=== PATIENT | female | born 1965 | race Hispanic/Latino ===

== ENCOUNTER 2017-09-29 10:40 | Emergency (ER) | payer SELFPAY ==
[2017-09-29] MEDS ORDERED: IBUPROFEN 200 MG TAB PO ONE ×2 (11:05→11:52)
--- NOTE | 2017-09-29 11:40 | EDPHYS ---
Physician Documentation [facility] Name: Monie Bundy Age: 52 yrs Sex: Female : 1965 Arrival Date: 09/29/2017 Time: 10:54 Bed 12 Private MD: ED Physician Lenny Bustillos HPI: 09/29 11:38 This 52 yrs old Female presents to ER via Ambulatory with complaints of Flu kb Symptoms. 11:38 The patient presents with sore throat. The patient describes throat pain as constant. kb Onset: The symptoms/episode began/occurred 2 day(s) ago. Severity of symptoms: At their worst the symptoms were mild, moderate, in the emergency department the symptoms are unchanged. Modifying factors: The symptoms are alleviated by nothing, the symptoms are aggravated by swallowing, Patient's oral intake status: good Denies contact with similarly ill indivduals. Associated signs and symptoms: Pertinent positives: fever, flu-like symptoms, myalgias, Sore throat. The patient has not experienced similar symptoms in the past. The patient has not recently seen a physician. Pt reports sore throat and body aches that is progressively getting worse. 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 - Social history:: Smoking status: Patient uses tobacco products, smokes one pack cigarettes per day. Patient uses alcohol, weekly. ROS: 11:36 Cardiovascular: Negative for chest pain, palpitations, and edema, Respiratory: Negative kb for shortness of breath, cough, wheezing, and pleuritic chest pain, Abdomen/GI: Negative for abdominal pain, nausea, vomiting, diarrhea, and constipation, MS/Extremity: Negative for injury and deformity, Skin: Negative for injury, rash, and discoloration, Neuro: Negative for headache, weakness, numbness, tingling, and seizure. 11:36 Constitutional: Positive for body aches, Negative for chills, fatigue, fever, malaise, poor PO intake, weight loss. 11:36 ENT: Positive for sore throat. Exam: 11:36 Constitutional: This is a well developed, well nourished patient who is awake, alert, kb and in no acute distress. Head/Face: Normocephalic, atraumatic. Neck: Trachea midline, no thyromegaly or masses palpated, and no cervical lymphadenopathy. Supple, full range of motion without nuchal rigidity, or vertebral point tenderness. No Meningismus. Chest/axilla: Normal chest wall appearance and motion. Nontender with no deformity. No lesions are appreciated. Cardiovascular: Regular rate and rhythm with a normal S1 and S2. No gallops, murmurs, or rubs. Normal PMI, no JVD. No pulse deficits. Respiratory: Lungs have equal breath sounds bilaterally, clear to auscultation and percussion. No rales, rhonchi or wheezes noted. No increased work of breathing, no retractions or nasal flaring. Abdomen/GI: Soft, non-tender, with normal bowel sounds. No distension or tympany. No guarding or rebound. No evidence of tenderness throughout. Skin: Warm, dry with normal turgor. Normal color with no rashes, no lesions, and no evidence of cellulitis. MS/ Extremity: Pulses equal, no cyanosis. Neurovascular intact. Full, normal range of motion. Neuro: Awake and alert, GCS 15, oriented to person, place, time, and situation. Cranial nerves II-XII grossly intact. Motor strength 5/5 in all extremities. Sensory grossly intact. Cerebellar exam normal. Normal gait. 11:36 ENT: Posterior pharynx: Airway: normal, no evidence of obstruction, Tonsils: bilaterally enlarged, with erythema, Uvula: normal, midline, swelling, that is mild, erythema, that is moderate, exudate, is not appreciated. Vital Signs: 10:59 BP 134 / 86; Pulse 90; Resp 17; Temp 100.3; Pulse Ox 98% on R/A; Weight 68.04 kg; ch Height 5 ft. (152.40 cm); Pain 8/10; 10:59 Body Mass Index 29.29 (68.04 kg, 152.40 cm) ch MDM: 11:03 Patient medically screened. kb 11:36 Data reviewed: vital signs, nurses notes. Data interpreted: Pulse oximetry: on room air kb is 98 %. Interpretation: normal. Counseling: I had a detailed discussion with the patient and/or guardian regarding: the historical points, exam findings, and any diagnostic results supporting the discharge/admit diagnosis, lab results, the need for outpatient follow up, a family practitioner, to return to the emergency department if symptoms worsen or persist or if there are any questions or concerns that arise at home. 09/29 10:58 Order name: Flu; Complete Time: 11:31 09/29 10:58 Order name: Strep; Complete Time: 11:31 09/29 11:32 Order name: Throat Culture EDNC Administered Medications: 11:54 Drug: Ibuprofen 600 mg Route: PO; aa5 11:54 Follow up: Response: Medication administered at discharge. aa5 Disposition: 22:20 Co-signature as Attending Physician, Lenny Bustillos MD I agree with the assessment and kdr plan of care. Disposition: 09/29/17 11:39 Discharged to Home. Impression: Acute pharyngitis. - Condition is Stable. - Discharge Instructions: Pharyngitis, Renr-bz-Fsch. - Prescriptions for Amoxicillin 875 mg Oral Tablet - take 1 tablet by ORAL route every 12 hours for 7 days; 14 tablet. - Medication Reconciliation Form, Thank You Letter, Antibiotic Education, Prescription Opioid Use form. - Follow up: Emergency Department; When: As needed; Reason: Worsening of condition. Follow up: Private Physician; When: 2 - 3 days; Reason: Recheck today's complaints, Continuance of care, Re-evaluation by your physician. Signatures: [facility] Shayy Rodriguez, VANDANA SHEPHERD-Kelley Yo RN RN Lenny Bustillos MD MD [facility] Sheila Schultz RN RN aa5 Corrections: (The following items were deleted from the chart) 11:56 11:39 09/29/2017 11:39 Discharged to Home. Impression: Acute pharyngitis. Condition is aa5 Stable. Forms are Medication Reconciliation Form, Thank You Letter, Antibiotic Education, Prescription Opioid Use. Follow up: Emergency Department; When: As needed; Reason: Worsening of condition. Follow up: Private Physician; When: 2 - 3 days; Reason: Recheck today's complaints, Continuance of care, Re-evaluation by your physician. kb
--- NOTE | 2017-09-29 11:40 | ER ---
Nurse's Notes [facility] Name: Monie Bundy Age: 52 yrs Sex: Female : 1965 Arrival Date: 09/29/2017 Time: 10:54 Bed 12 Private MD: Diagnosis: Acute pharyngitis Presentation: 09/29 10:58 Presenting complaint: Patient states: night before last my throat felt sore and dry. ch this morning i woke up and my throat feels swollen and i have body aches all over. Transition of care: patient was not received from another setting of care. Onset of symptoms was September 27, 2017. Initial Sepsis Screen: Does the patient meet any 2 criteria? No. Patient's initial sepsis screen is negative. Does the patient have a suspected source of infection? No. Patient's initial sepsis screen is negative. Care prior to arrival: None. 10:58 Method Of Arrival: Ambulatory 10:58 Acuity: JANNETTE 4 ch Triage Assessment: 10:59 General: Appears in no apparent distress. comfortable, Behavior is calm, cooperative, ch appropriate for age. Pain: Complains of pain in throat Pain currently is 8 out of 10 on a pain scale. EENT: Nares with drainage noted Throat is reddened has enlarged tonsils bilaterally Reports nasal congestion nasal discharge pain when swallowing. Respiratory: Airway is patent Respiratory effort is even, unlabored. Derm: Skin is pink, warm \T\ dry. 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 - Social history:: Smoking status: Patient uses tobacco products, smokes one pack cigarettes per day. Patient uses alcohol, weekly. Assessment: 11:55 Reassessment: Patient is alert, oriented x 3, equal unlabored respirations, skin aa5 warm/dry/pink. Vital Signs: 10:59 BP 134 / 86; Pulse 90; Resp 17; Temp 100.3; Pulse Ox 98% on R/A; Weight 68.04 kg; ch Height 5 ft. (152.40 cm); Pain 8/10; 10:59 Body Mass Index 29.29 (68.04 kg, 152.40 cm) ED Course: 10:54 Patient arrived in ED. sb2 10:59 Triage completed. 10:59 Arm band placed on left wrist. Patient placed in an exam room, on a stretcher. 11:00 Kelley Rodriguez, RN is Primary Nurse. 11:02 Shayy Rodriguez [facility]C [facility]. 11:02 Lenny Bustillos MD is Attending Physician. kb Administered Medications: 11:54 Drug: Ibuprofen 600 mg Route: PO; aa5 11:54 Follow up: Response: Medication administered at discharge. aa5 Outcome: 11:39 Discharge ordered by MD. kb 11:55 Discharged to home ambulatory. aa5 11:55 Condition: good 11:55 Discharge instructions given to patient, Instructed on discharge instructions, follow up and referral plans. medication usage, Demonstrated understanding of instructions, follow-up care, medications, Prescriptions given X 1. 11:56 Patient left the ED. aa5 Signatures: Shayy Rodriguez FNP-C FNP-Ckb Hammond, Christina, RN RN Sheila Schultz RN RN aa Amelia Gutierrez 2
[2017-09-29] MEDS ORDERED: IBUPROFEN 400 MG TAB ONE (11:52)
== END 2017-09-29 11:56 | disposition home or self-care (01) ==
LOC: ER 10:40
DX: J02.9 Acute pharyngitis, unspecified (principal); F17.210 Nicotine dependence, cigarettes, uncomplicated
CPT/HCPCS: 87070; 87081; 87804; 99283

== ENCOUNTER 2021-10-08 11:19 | Observation (INO) | payer BC, SELFPAY ==
--- OUTSIDE RECORDS SUMMARY | 2021-10-08 11:24 | XMS REPORT | Continuity of Care Document ---
:1965 Author Organization [facility] t Address [address] [place] [address] Care Team Providers Name Role Phone PCP, DOES NOT HAVE A Primary Care Physician Unavailable RENE Attending Clinician Unavailable Only, Db Test Attending Clinician Unavailable Rene GOMEZ Attending Clinician Anene INSULATION SPRAYER Attending Clinician Only, Test Attending Clinician Unavailable Caitlyn GOMEZ Attending Clinician Lab, Fam Pob I Attending Clinician Unavailable ANENE Attending Clinician Unavailable Doctor Unassigned, Name Attending Clinician Unavailable Benton GOMEZ, A Attending Clinician Payers Payer Name Policy Type Policy Number Effective Date Expiration Date S ource [facility] [id number] 2019 00:00:00 Problems This patient has no known problems. Allergies, Adverse Reactions, Alerts Allergy Allergy Status Severity Reaction(s) Onset Inactive Treating Comm ents Source Name Type Date Date Clinician NO KNOWN Drug Active [facility] ALLERGIE Class ity of S [facility] Social History Social Habit Start Date Stop Date Quantity Comments Source Exposure to Not sure [facility] SARS-CoV-2 (event) Medica l Branch Sex Assigned At [birth year] [facility] 00:00:00 00:00:00 [facility] Smoking Status Start Date Stop Date Source Unknown if ever smoked [facility] Medications Ordered Filled Start Stop Current Ordering Indication Dosage Frequency Signature Comments Components Source Medication Medication Date Date Medication? Clinician (SIG) Name Name No known 2020-05 No Univers medications 2-29 ity of 16:29: [place] [facility] No known No Univers medications ity of [facility] No known No Univers medications ity of [facility] No known No Univers medications ity of [facility] No known No Univers medications ity of [facility] No known No Univers medications ity of [facility] No known No Univers medications ity of [facility] No known No Univers medications ity of [facility] No known No Univers medications ity of [facility] No known No Univers medications ity of [facility] No known No Univers medications ity of [facility] No known No Univers medications ity of [facility] Procedures Procedure Date / Time Performed Performing Clinician [facility] ASSIGNMENT OF BENEFITS 2020-01-11 19:53:17 Doctor Unassigned, No [facility] Name Medical Branch Encounters Start End Encounter Admission Attending Care Care Encounter Source Date/Time Date/Time Type Type Clinicians Facility Department ID 2021-05-21 2021-05-21 Outpatient R RENE [facility] [id number] Univers 16:30:00 16:30:27 DAVID ity of [facility] 2021-05-21 2021-05-21 Laboratory Only, Ang Db Test [facility] [id number] [id number] Univers 16:30:00 16:30:27 Only Rene [facility] [id number] ity of [place] [id number] Frank as SEA?BLEA [phone] [facility] [address] [employer] MEDICAL OFFICE BUILDING 2021-05-21 2021-05-21 Outpatient R [facility] [id number] Univers 16:30:00 16:30:00 [id number] ity [facility] 2020-09-20 2020-09-20 Telephone Vickey [facility] [id number] Univers 00:00:00 00:00:00 Priscilla Quigley [id number] i [id number] [phone] [facility] [address] 2020-09-19 2020-09-19 Laboratory Only, Adc Test [facility] [id number]. [id number] Univers 13:54:25 14:09:25 Only Morgan Brady [id number] ity of [place] [id number] [place] [facility] [phone] [address] 2020-09-19 2020-09-19 Outpatient R [facility] [id number] Univers 14:00:00 14:00:00 ity of [facility] 2020-09-19 2020-09-19 Outpatient R [facility] [id number] Univers 13:30:00 13:30:00 [id number] ity [facility] 2020-09-12 2020-09-12 [facility] [id number] Univers 00:00:00 00:00:00 Priscilla [employer] [id number] it y of [place] [id number] Frank as Professio [phone] [address] Office [facility] One 2020-09-11 2020-09-11 Telephone Vickey [facility] [id number] Univers 00:00:00 00:00:00 Priscilla [employer] [id number] it y of [place] [id number] Frank as Professio [phone] Mt dicar nal [address] [place] [address] One 2020-09-09 2020-09-09 Laboratory Lab, Adc Fam Pob I [facility] 1.2. [id number] Univers 15:32:06 15:52:06 Only Priscilla Hurd [id number] ity of [place] [id number] Frank as Professio [phone] [address] One 2020-09-09 2020-09-09 Outpatient R [facility] [id number] Univers 15:00:00 15:00:00 [id number] ity [facility] 2020-09-09 2020-09-09 [facility] [id number] Univers 15:00:00 15:00:00 PRISCILLA ity [facility] 2020-09-09 2020-09-09 Letter Doctor ALICEA [id number] Univers 00:00:00 00:00:00 (Out) Unassigned, KATIA [id number] ity of [place] [facility] [id number] Frank as [phone] [facility] [address] Branch 2020-01-11 2020-01-11 Laboratory Only, Adc Test [facility] 1.2.840. [id number] Univers 14:56:13 15:11:13 Only Lázaro Bhardwaj [id number] ity of [place] [id number] [place] [facility] [phone] [facility] [address] Branch 2020-01-11 2020-01-11 Outpatient R [facility] [id number] Univers 14:45:00 14:45:00 ity of [facility] 2020-01-11 2020-01-11 Orders Doctor NIXNO [id number] Univers 00:00:00 00:00:00 Only Unassigned, KATIA [id number] ity of [place] [facility] [id number] Frank as [phone] [facility] 00[address] Branch Results This patient has no known results.
[2021-10-08 13:34] LABS: Hematocrit 44.4 % (36.0-45.0); Lymphocytes % 33.2 % (15.3-44.8); RBC Red Blood Cell Count 4.83 M/uL (3.86-4.86)
[2021-10-08 13:38] LABS: Protime INR 0.97
--- NOTE | 2021-10-08 13:43 | RAD REPORT ---
EXAM DESCRIPTION: RAD - Chest Single View - 10/08/2021 1:29 pm CLINICAL HISTORY: CHEST PAIN COMPARISON: No comparisons FINDINGS: Lines: None. Lungs: No evidence of edema or pneumonia. Pleural: No significant pleural effusions or pneumothorax. Cardiac: Cardiomegaly. Bones: No acute fractures. Other: IMPRESSION: No acute cardiopulmonary disease.
[2021-10-08 13:54] LABS: ALT/SGPT 35 U/L (12-78); AST/SGOT 20 U/L (15-37); Albumin 3.8 g/dL (3.4-5.0); Alkaline Phosphatase 83 U/L (45-117); BUN Blood Urea Nitrogen 10 mg/dL (7-18); Bicarbonate 29 mmol/L (21-32); Bilirubin Total 0.3 mg/dL (0.2-1.0); Glomerular Filtration Rate 102 ml/min (=/>90); Glucose Level 97 mg/dL (74-106); Magnesium 2.1 mg/dL (1.8-2.4); NT PRO-BNP 28 pg/mL (<125); Potassium 3.4 mmol/L (3.5-5.1); Protein, Total 8.1 g/dL (6.4-8.2); Sodium Level 140 mmol/L (136-145); Troponin High Sensitivity 6.4 pg/mL (<58.9)
[2021-10-08 13:55] LABS: Bilirubin Direct < 0.1 mg/dL (0-0.2)
[2021-10-08] MEDS ORDERED: ASPIRIN 81 MG CHEWABLE TABLET ONE (15:28)
--- NOTE | 2021-10-08 16:20 | ER ---
Nurse's Notes [facility] Name: Monie Bundy Age: 56 yrs Sex: Female : 1965 Arrival Date: 10/08/2021 Time: 11:21 Bed 26 Private MD: Diagnosis: Chest pain, unspecified Presentation: 10/08 11:53 Chief complaint: Patient states: she was at work when she started experiencing chest ap3 pain and chest tightness. patient states the pain has subsided since, but at the time she reports it as a 5/10. Coronavirus screen: At this time, the client does not indicate any symptoms associated with coronavirus-19. Ebola Screen: No symptoms or risks identified at this time. Initial Sepsis Screen: Does the patient meet any 2 criteria? No. Patient's initial sepsis screen is negative. Does the patient have a suspected source of infection? No. Patient's initial sepsis screen is negative. Risk Assessment: Do you want to hurt yourself or someone else? Patient reports no desire to harm self or others. Onset of symptoms was October 08, 2021 at 10:30. 11:53 Method Of Arrival: Ambulatory ap3 11:53 Acuity: JANNETTE 3 ap3 Triage Assessment: 11:55 General: Appears in no apparent distress. Behavior is calm, cooperative, appropriate ap3 for age. Pain: Complains of pain in chest Pain does not radiate. Neuro: Level of Consciousness is awake, alert, obeys commands, Oriented to person, place, time, situation, Appropriate for age Gait is steady, Speech is normal. Cardiovascular: Reports chest pain, Patient's skin is warm and dry. Respiratory: Airway is patent Respiratory effort is even, unlabored, Respiratory pattern is regular, symmetrical. Historical: - Allergies: 11:55 No Known Allergies; ap3 - Home Meds: 11:55 None [Active]; ap3 - PMHx: 11:55 None; ap3 - Immunization history:: Client reports having NOT received the Covid vaccine. Flu vaccine is up to date. - Social history:: Smoking status: Patient reports the use of cigarette tobacco products, denies chronic smoking, but will smoke occasionally. Screenin:56 Abuse screen: Denies threats or abuse. Nutritional screening: No deficits noted. ap3 Tuberculosis screening: No symptoms or risk factors identified. Fall Risk None identified. Assessment: 15:39 General: Appears in no apparent distress. comfortable, Behavior is calm, cooperative, ld1 appropriate for age. Pain: Denies pain. Neuro: Level of Consciousness is awake, alert, obeys commands, Oriented to person, place, time, situation. Cardiovascular: Capillary refill < 3 seconds Patient's skin is warm and dry. Rhythm is regular. Respiratory: Airway is patent Respiratory effort is even, unlabored. GI: Abdomen is round non-distended. : No signs and/or symptoms were reported regarding the genitourinary system. EENT: No signs and/or symptoms were reported regarding the EENT system. Derm: No signs and/or symptoms reported regarding the dermatologic system. Musculoskeletal: No signs and/or symptoms reported regarding the musculoskeletal system. 16:26 Reassessment: Patient appears in no apparent distress at this time. No changes from ld1 previously documented assessment. Patient is alert, oriented x 3, equal unlabored respirations, skin warm/dry/pink. 10/09 01:12 Pain: Pain began. vc1 Vital Signs: 10/08 11:53 BP 128 / 89; Pulse 71; Resp 17; Temp 98.6; Pulse Ox 100% ; Weight 81.65 kg; Height 5 ap3 ft. (152.40 cm); 15:39 BP 136 / 87; Pulse 68; Resp 18; Pulse Ox 99% on R/A; ld1 16:26 BP 129 / 88; Pulse 71; Resp 18; Pulse Ox 99% on R/A; ld1 18:19 BP 123 / 72; Pulse 65; Resp 18; Pulse Ox 97% on R/A; ld1 19:24 BP 140 / 85; Pulse 62; Resp 18; Pulse Ox 99% on R/A; ld1 11:53 Body Mass Index 35.15 (81.65 kg, 152.40 cm) ap3 ED Course: 11:21 Patient arrived in ED. am2 11:47 Ke Leon PA is PHCP. cp 11:47 Danny Hensley DO is Attending Physician. cp 11:55 Triage completed. ap3 11:56 Arm band placed on left wrist. ap3 11:56 EKG done, by ED staff, reviewed by Ke TITUS. ap3 11:56 Patient maintains SpO2 saturation greater than 95% on room air. ap3 13:28 Inserted saline lock: 20 gauge in left antecubital area, using aseptic technique. Blood jw7 collected. 13:29 Initial lab(s) drawn, by me, sent to lab. jw7 13:31 XRAY Chest (1 view) In Process Unspecified. EDMS 15:35 Yadi Cuello, RN is Primary Nurse. ld1 15:40 Patient has correct armband on for positive identification. Placed in gown. Bed in low ld1 position. Call light in reach. Side rails up X2. manager monitoring on. Pulse ox on. NIBP on. Door closed. Noise minimized. Warm blanket given. 15:40 No provider procedures requiring assistance completed. ld1 16:20 Andrea Montague is Hospitalizing Provider. cp 10/09 00:00 Patient admitted, IV remains in place. vc1 Administered Medications: 10/08 15:40 Drug: Aspirin Chewable Tablet 324 mg Route: PO; ld1 16:26 Drug: Potassium Effervescent Tablet 50 mEq Route: PO; ld1 Medication: 11:56 VIS not applicable for this client. ap3 Outcome: 16:20 Decision to Hospitalize by Provider. cp 10/09 00:00 Admitted to ER Hold. Please see [facility] for further documentation. vc1 Condition: good Instructed on the need for admit. 18:32 Discharged to home ambulatory. edmond 18:32 Patient left the ED. edmond Signatures: Dispatcher [employer] EDMS Ke Leon PA PA cp Charis Shoemaker am2 Charis Lim RN RN ap3 Yadi Cuello, RN RN ld1 Avelina-StageChristie guardado RN RN edmond Maria Eugenia Williamson RN RN vc1 Cely Wilkerson jw7
--- NOTE | 2021-10-08 16:21 | EDPHYS ---
Physician Documentation [facility] Name: Monie Bundy Age: 56 yrs Sex: Female : 1965 Arrival Date: 10/08/2021 Time: 11:21 Bed 26 Private MD: ED Physician Danny Hensley HPI: 10/08 12:35 This 56 yrs old Female presents to ER via Ambulatory with complaints of Chest cp Tightness, Chest Pain. 12:35 The patient or guardian reports chest pain that is located primarily in the anterior cp chest wall, left. 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 12:35 The pain does not radiate. Associated signs and symptoms: The patient has no apparent cp associated signs or symptoms. The chest pain is described as a pressure. Duration: The patient or guardian reports a single episode, that is now resolved. Historical: - Allergies: 11:55 No Known Allergies; ap3 - Home Meds: 11:55 None [Active]; ap3 - PMHx: 11:55 None; ap3 - Immunization history:: Client reports having NOT received the Covid vaccine. Flu vaccine is up to date. - Social history:: Smoking status: Patient reports the use of cigarette tobacco products, denies chronic smoking, but will smoke occasionally. ROS: 12:40 Constitutional: Negative for body aches, chills, fever, poor PO intake. cp 12:40 Cardiovascular: Positive for chest pain, Negative for edema, palpitations. cp 12:40 Respiratory: Negative for cough, shortness of breath, wheezing. 12:40 Abdomen/GI: Negative for abdominal pain, vomiting, diarrhea, constipation. cp 12:40 Back: Negative for pain at rest, pain with movement. cp 12:40 Eyes: Negative for injury, pain, redness, and discharge. cp 12:40 ENT: Negative for drainage from ear(s), ear pain, sore throat, difficulty swallowing, cp difficulty handling secretions. 12:40 Neuro: Negative for altered mental status, dizziness, headache, syncope, weakness. 12:40 All other systems are negative. Exam: 11:55 ECG was reviewed by the Attending Physician. cp 12:45 Constitutional: The patient appears in no acute distress, alert, awake, cp non-diaphoretic, non-toxic, well developed, well nourished. 12:45 Head/Face: Normocephalic, atraumatic. cp 12:45 Eyes: Periorbital structures: appear normal, Conjunctiva: normal, no exudate, no injection, Sclera: no appreciated abnormality, Lids and lashes: appear normal, bilaterally. 12:45 ENT: External ear(s): are unremarkable, Nose: is normal, Mouth: Lips: moist, Oral mucosa: moist, Posterior pharynx: Airway: no evidence of obstruction, patent. 12:45 Neck: ROM/movement: is normal, is supple, without pain, no range of motions limitations. 12:45 Chest/axilla: Inspection: normal. 12:45 Cardiovascular: Rate: normal, Rhythm: regular, Heart sounds: murmur, not appreciated, Edema: is not appreciated, JVD: is not appreciated. 12:45 Respiratory: the patient does not display signs of respiratory distress, Respirations: normal, no use of accessory muscles, no retractions, labored breathing, is not present, Breath sounds: are clear throughout, no decreased breath sounds, no stridor, no wheezing. 12:45 Abdomen/GI: Inspection: abdomen appears normal, Palpation: abdomen is soft and non-tender, in all quadrants. 12:45 Back: pain, is absent, ROM is normal. 12:45 Neuro: Orientation: to person, place \\T\\ time. Mentation: is normal, Motor: moves all fours, strength is normal, Sensation: is normal. 15:55 ECG was reviewed by the Attending Physician. cp Vital Signs: 11:53 BP 128 / 89; Pulse 71; Resp 17; Temp 98.6; Pulse Ox 100% ; Weight 81.65 kg; Height 5 ap3 ft. (152.40 cm); 15:39 BP 136 / 87; Pulse 68; Resp 18; Pulse Ox 99% on R/A; ld1 16:26 BP 129 / 88; Pulse 71; Resp 18; Pulse Ox 99% on R/A; ld1 18:19 BP 123 / 72; Pulse 65; Resp 18; Pulse Ox 97% on R/A; ld1 19:24 BP 140 / 85; Pulse 62; Resp 18; Pulse Ox 99% on R/A; ld1 11:53 Body Mass Index 35.15 (81.65 kg, 152.40 cm) ap3 MDM: 15:22 Patient medically screened. cp 16:09 The patient was given aspirin in the Emergency Department. Data reviewed: vital signs, cp nurses notes, lab test result(s), EKG, radiologic studies, plain films, I have discussed the patient's presentation/case with the attending Emergency Department Physician;. Test interpretation: by ED physician or midlevel provider: ECG, plain radiologic studies. Physician consultation: Andrea Montague was called at 16:10, was contacted at 16:10, regarding consult, patient's condition, and will see patient in ED, shortly. 10/08 12:30 Order name: Basic Metabolic Panel; Complete Time: 14:48 cp 10/08 14:48 Interpretation: Normal except: K 3.4. cp 10/08 12:30 Order name: CBC with Diff; Complete Time: 13:54 cp 10/08 13:54 Interpretation: Normal except: MCV 91.9; MCH 30.4. cp 10/08 12:30 Order name: LFT's; Complete Time: 14:48 cp 10/08 14:48 Interpretation: Normal except: GLOB 4.3; A/G 0.9. cp 10/08 12:30 Order name: Magnesium; Complete Time: 14:48 cp 10/08 12:30 Order name: NT PRO-BNP; Complete Time: 14:48 cp 10/08 12:30 Order name: PT-INR; Complete Time: 13:54 cp 10/08 12:30 Order name: Troponin HS; Complete Time: 14:48 cp 10/08 14:48 Interpretation: Troponin HS 6.4; Reviewed. 10/08 16:27 Order name: COVID 19 CPL (Document "Date of Onset" if Symptomatic) ld1 10/08 19:57 Order name: SARS-COV-2 RT PCR [facility] 10/08 22:23 Order name: Troponin High Sensitivity [facility] 10/08 22:23 Order name: Lipid Profile [facility] 10/09 04:04 Order name: CBC with Automated Diff [facility] 10/09 04:22 Order name: Basic Metabolic Panel [facility] 10/09 04:28 Order name: Troponin High Sensitivity [facility] 10/08 12:30 Order name: XRAY Chest (1 view); Complete Time: 13:54 cp 10/08 12:30 Order name: EKG; Complete Time: 12:30 cp 10/08 12:30 Order name: Cardiac monitoring; Complete Time: 15:40 cp 10/08 12:30 Order name: EKG - Nurse/Tech; Complete Time: 15:40 cp 10/08 12:30 Order name: IV Saline Lock; Complete Time: 15:40 cp 10/08 12:30 Order name: Labs collected and sent; Complete Time: 15:40 cp 10/08 12:30 Order name: O2 Per Protocol; Complete Time: 15:40 cp 10/08 12:30 Order name: O2 Sat Monitoring; Complete Time: 15:40 cp 10/08 15:27 Order name: EKG; Complete Time: 15:28 cp 10/08 15:27 Order name: EKG - Nurse/Tech; Complete Time: 16:15 cp EC:55 Rate is 68 beats/min. Rhythm is regular. NH interval is normal. QRS interval is normal. cp QT interval is normal. T waves are Inverted in leads V2, V3, V4, V5, V6. Interpreted by me. Reviewed by me. 15:55 Rate is 63 beats/min. Rhythm is regular. NH interval is normal. QRS interval is normal. cp QT interval is normal. T waves are Inverted in leads V2, V3, V4, V5. Interpreted by me. Reviewed by me. Administered Medications: 15:40 Drug: Aspirin Chewable Tablet 324 mg Route: PO; ld1 16:26 Drug: Potassium Effervescent Tablet 50 mEq Route: PO; ld1 Disposition: 22:09 Co-signature as Attending Physician, Danny Hensley DO I was immediately available on-site ms3 in the Emergency Department for consultation in the care of the patient. . Disposition Summary: 10/08/21 16:20 Hospitalization Ordered Hospitalization Status: Observation cp Provider: Andrea Montague cp Condition: Stable cp Problem: new cp Symptoms: have improved cp Bed/Room Type: Standard cp Location: [facility] ER HOLD(10/08/21 20:23) oe Room Assignment: ERHOLD-(10/08/21 20:23) oe Diagnosis - Chest pain, unspecified cp Forms: - Medication Reconciliation Form cp - SBAR form cp Signatures: Dispatcher [employer] EDMS Ke Leon PA PA cp Phillip Paula Amanda, RN RN ap3 Danny Hensley DO DO ms3 Dibbern, Yadi, RN RN ld1 Corrections: (The following items were deleted from the chart) 16:20 Telemetry/MedSurg (observation) cp oe : 16:20 cp oe
[2021-10-08] MEDS ORDERED: POTASSIUM 25 MEQ EFFERV TAB ONE (16:24)
--- NOTE | 2021-10-08 19:06 | P.HP ---
Certification for Inpatient Patient admitted to: Observation With expected LOS: <2 Midnights Practitioner: I am a practitioner with admitting privileges, knowledge of patient current condition, hospital course, and medical plan of care. Services: Services provided to patient in accordance with Admission requirements found in Title 42 Section 412.3 of the Code of Federal Regulations Patient History Date of Service: 10/08/21 Reason for admission: Chest pain History of Present Illness: 56-year-old woman, current smoker, no known medical problem presented to the emergency department due to sudden onset chest tightness which occurred while she was driving. 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 Chest tightness is nonradiating, no known aggravating or relieving factors. Patient denies shortness of breath or palpitation. She denies cough or wheezing. Initial troponin in the ED is negative. EKG demonstrated symmetrical T wave inversions in the chest leads. Chest x-ray unremarkable. Patient was chest pain-free in the ED. She reports multiple members in her family has a history of coronary artery disease. Patient is placed under observation for ACS rule out. Allergies No Known Allergies Allergy (Unverified 10/23/15 23:29) - Past Medical/Surgical History Diabetic: No -: None - Family History Mother -: Heart disease - Social History Smoking Status: Current every day smoker Alcohol use: Yes CD- Drugs: No Place of Residence: Home Review of Systems Other: She denied any fever or abdominal pain or nausea or vomiting. Except as documented, all other systems reviewed and negative. Physical Examination - Physical Exam General: Alert, In no apparent distress, Oriented x3 HEENT: PERRLA, Mucous membr. moist/pink, Sclerae nonicteric Neck: Supple, JVD not distended, No Thyromegaly Respiratory: Clear to auscultation bilaterally, Normal air movement Cardiovascular: No edema, Regular rate/rhythm, Normal S1 S2, No murmurs Capillary refill: <2 Seconds Gastrointestinal: Normal bowel sounds, Soft and benign, Non-distended, No tenderness Musculoskeletal: No swelling, No tenderness Integumentary: No rashes, No erythema, No cyanosis Neurological: Normal speech, Normal strength at 5/5 x4 extr, Cranial nerves 3-12 intact Lymphatics: No axilla or inguinal lymphadenopathy - Studies Laboratory Data (last 24 hrs) 10/08/21 13:25: PT 10.7, INR 0.97 10/08/21 13:25: WBC 8.9, Hgb 14.7, Hct 44.4, Plt Count 170 10/08/21 13:25: Sodium 140, Potassium 3.4 L, BUN 10, Creatinine 0.65, Glucose 97, Magnesium 2.1, Total Bilirubin 0.3, AST 20, ALT 35, Alkaline Phosphatase 83 Assessment and Plan - Problems (Diagnosis) (1) Chest pain Current Visit: Yes Status: Acute (2) Abnormal EKG Current Visit: Yes Status: Acute (3) Tobacco use Current Visit: Yes Status: Acute - Plan Place patient under observation. Trend troponin Patient's abnormal EKG-T wave inversion is concerning. Start aspirin NTG as needed Blood pressure control as needed. Cardiology consult Nuclear stress test pending troponin result. Patient advised to quit smoking. - Advance Directives Does patient have a Living Will: No Does patient have a Durable POA for Healthcare: No
[2021-10-08] MEDS ORDERED: NITROGLYCERIN 0.4 MG/TAB SL PRN (20:55)
[2021-10-08] MEDS ORDERED: ACETAMINOPHEN 500 MG TAB PO PRN (20:55)
[2021-10-08 21:06] VITALS: BMI 30.6
[2021-10-08 22:22] LABS: Troponin High Sensitivity 6.1 pg/mL (<58.9)
[2021-10-09 03:45] LABS: Absolute Lymphocytes (CBC) 3.5 K/uL (0.7-4.9); Hematocrit 43.4 % (36.0-45.0); Lymphocytes % 41.9 % (15.3-44.8); MPV 10.2 fL (7.6-11.3); RBC Red Blood Cell Count 4.69 M/uL (3.86-4.86)
[2021-10-09 04:22] LABS: Potassium 3.7 mmol/L (3.5-5.1)
--- NOTE | 2021-10-09 07:38 | EKG ---
Test Date: 2021-10-08 Test Time: 15:49:20 Customer Service And Sales Consultant: BEATRIZ MEASUREMENT RESULTS: Intervals: Rate: 63 [place]: 150 QRSD: 92 QT: 418 QTc: 427 [place]: P: 16 [place]: 150 QRS: -1 T: -17 INTERPRETIVE STATEMENTS: Normal sinus rhythm ST & T wave abnormality, consider anterior ischemia Abnormal ECG Compared to ECG 10/08/2021 11:49:41 No significant changes Electronically Signed On 10-09-21 07:37:01 CDT by Kelvin Manzo
--- NOTE | 2021-10-09 07:39 | EKG ---
Test Date: 2021-10-08 Test Time: 11:49:41 Document Preparation Specialist: ALP MEASUREMENT RESULTS: Intervals: Rate: 68 OR: 152 QRSD: 90 QT: 388 QTc: 412 [place]: P: 28 OR: 152 QRS: -2 T: 12 INTERPRETIVE STATEMENTS: Normal sinus rhythm ST & T wave abnormality, consider anterolateral ischemia Abnormal ECG No previous ECG available for comparison Electronically Signed On 10-09-21 07:37:11 CDT by Kelvin Manzo
[2021-10-09 07:42] VITALS: BP 116/82; TEMP 98.4
[2021-10-09] MEDS ORDERED: ENOXAPARIN 40 MG/0.4 ML SQ ONE (07:58)
[2021-10-09] MEDS ORDERED: ASPIRIN EC 81 MG TAB PO ONE (07:58)
[2021-10-09] MEDS: ENOXAPARIN 40 MG/0.4 ML SQ SCH ×2 (08:00→09:00)
[2021-10-09] MEDS ORDERED: ASPIRIN EC 81 MG TAB PO SCH (09:00)
[2021-10-09] MEDS ORDERED: REGADENOSON 0.4 MG/5 ML SYR IV ONE (09:00)
[2021-10-09 09:39] VITALS: O2SAT 96
--- NOTE | 2021-10-09 17:40 | P.DS ---
Admission Date: 10/08/21 Discharge Date: 10/09/21 Disposition: ROUTINE DISCHARGE Discharge Condition: FAIR Reason for Admission: Chest pain - Problems (1) Chest pain Current Visit: Yes Status: Acute (2) Abnormal EKG Current Visit: Yes Status: Acute (3) Tobacco use Current Visit: Yes Status: Acute Brief History of Present Illness: 56-year-old woman, current smoker, no known medical problem presented to the emergency department due to sudden onset chest tightness which occurred while she was driving. 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 Chest tightness is nonradiating, no known aggravating or relieving factors. Patient denies shortness of breath or palpitation. She denies cough or wheezing. Initial troponin in the ED is negative. EKG demonstrated symmetrical T wave inversions in the chest leads. Chest x-ray unremarkable. Patient was chest pain-free in the ED. She reports multiple members in her family has a history of coronary artery disease. Patient is placed under observation for ACS rule out. Hospital Course: Patient placed under observation. Troponin trended negative. Nuclear stress test was recommended given her abnormal EKG but patient declined to do the stress test at the moment. Seen by cardiology-Dr. Manzo who recommended echocardiogram. Echocardiogram done and the result is pending. Patient has been symptomatic, ACS ruled out. Dr. Manzo recommend follow-up with him as an outpatient in his office for arrangement for stress test. Patient started on aspirin. Cannot prescribe beta-blockers due to baseline bradycardia and borderline low blood pressure. Lipid profile showed elevated triglyceride and total cholesterol. Patient with low CAD risk factors. Recommended dietary [id number] low-cholesterol diet. Vital Signs/Physical Exam: Temp Pulse Resp BP Pulse Ox 98.4 F 63 17 116/82 97 10/09/21 07:39 10/09/21 07:39 10/09/21 07:39 10/09/21 07:39 10/09/21 07:39 General: Alert, In no apparent distress, Oriented x3 HEENT: Mucous membr. moist/pink Neck: JVD not distended Respiratory: Clear to auscultation bilaterally, Normal air movement Cardiovascular: No edema, Regular rate/rhythm, Normal S1 S2 Gastrointestinal: Soft and benign, Non-distended Musculoskeletal: No swelling, No tenderness Integumentary: No rashes, No cyanosis Neurological: Normal strength at 5/5 x4 extr Laboratory Data at Discharge: WBC 8.5 K/uL (4.3-10.9) 10/09/21 03:29 Hgb 14.2 g/dL (12.0-15.0) 10/09/21 03:29 Hct 43.4 % (36.0-45.0) 10/09/21 03:29 Plt Count 154 K/uL (152-406) 10/09/21 03:29 PT 10.7 SECONDS (9.5-12.5) 10/08/21 13:25 INR 0.97 10/08/21 13:25 Sodium 140 mmol/L (136-145) 10/09/21 03:25 Potassium 3.7 mmol/L (3.5-5.1) 10/09/21 03:25 BUN 8 mg/dL (7-18) 10/09/21 03:25 Creatinine 0.62 mg/dL (0.55-1.3) 10/09/21 03:25 Glucose 116 mg/dL (74-106) H 10/09/21 03:25 Magnesium 2.1 mg/dL (1.8-2.4) 10/08/21 13:25 Total Bilirubin 0.3 mg/dL (0.2-1.0) 10/08/21 13:25 AST 20 U/L (15-37) 10/08/21 13:25 ALT 35 U/L (12-78) 10/08/21 13:25 Alkaline Phosphatase 83 U/L (45-117) 10/08/21 13:25 Triglycerides 240 mg/dL (<150) H 10/08/21 21:42 Cholesterol 196 mg/dL (<200) 10/08/21 21:42 HDL Cholesterol 35 mg/dL (40-60) L 10/08/21 21:42 Cholesterol/HDL Ratio 5.60 10/08/21 21:42 Home Medications: Aspirin [Aspirin EC] 81 mg PO DAILY #30 tablet. 10/09/21 New Medications: Aspirin [Aspirin EC] 81 mg PO DAILY #30 tablet. Diet: AHA Activity: Ad inder Followup: NONE,NONE [Primary Care Provider] - Kelvin Manzo MD [ACTIVE - CAN ADMIT] - 1 Week (Please call office at [phone] for arrangement for Stress test.)
--- NOTE | 2021-10-10 07:32 | ECHO ---
HEIGHT: 5 ft 4 in WEIGHT: 178 lb 9.191 oz DATE OF STUDY: 10/09/[address]: marcos lopez 2-DIMENSIONAL: YES M.MODE: YES DOPPLER: YES COLOR FLOW: YES TDS: NO PORTABLE: YES DEFINITY: NO BUBBLE STUDY: NO DIAGNOSIS: CHEST PAIN, ABNORMAL EKG CARDIAC HISTORY: CATHERIZATION: NO SURGERY: NO PROSTHETIC VALVE: NO PACEMAKER: NO MEASUREMENTS (cm) DIASTOLIC (NORMALS) SYSTOLIC (NORMALS) IVSd 1.1 (0.6-1.2) LA Diam 2.5 (1.9-4.0) LVEF 55-65% LVIDd 4.5 (3.5-5.7) LVIDs 3.4 (2.0-3.5) %FS 25% LVPWd 1.2 (0.6-1.2) Ao Diam 2.9 (2.0-3.7) 2 DIMENSIONAL ASSESSMENT: RIGHT ATRIUM: NORMAL LEFT ATRIUM: NORMAL RIGHT VENTRICLE: NORMAL LEFT VENTRICLE: NORMAL TRICUSPID VALVE: NORMAL MITRAL VALVE: NORMAL PULMONIC VALVE: NORMAL AORTIC VALVE: NORMAL PERICARDIAL EFFUSION: NONE AORTIC ROOT: NORMAL LEFT VENTRICULAR WALL MOTION: NORMAL DOPPLER/COLOR FLOW: NORMAL COMMENTS: NORMAL LEFT VENTRICULAR EJECTION FRACTION 55-60%. NORMAL WALL MOTION. TECHNOLOGIST: Maru KELLOGG
--- NOTE | 2021-10-12 15:45 | CON ---
Date of Consultation: 10/09/2021 Reason For Consultation: Atypical chest pain. History Of Present Illness: Ms. Bundy is 56. Has really no past medical history, does not take an y medications. Came in with atypical chest pain, left-sided, worse with breathing with some shortnes s of breath. No nausea, vomiting, diaphoresis, PND, orthopnea, pedal edema, palpitation, or syncope. Workup showed an EKG that suggests anterior ischemia. Otherwise, all workup negative. Troponin is negative. Chest x-ray is negative. Had an echocardiogram that is negative. We will continue her p resent regimen for now. Past Medical History: Negative. Allergies: NONE. Medications: None. Review of Systems: Negative. Social History: Negative. Family History: Negative. Physical Examination: Vital Signs: Stable, afebrile. HEENT: Negative. Neck: Supple with no bruit. Chest: Clear. Cardiac: Revealed a regular rhythm and rate. No murmurs, gallops, or rubs. Abdomen: Benign. Extremities: Revealed no clubbing, cyanosis, or edema. Diagnostic Data: All normal except for the EKG. Impression And Plan: Atypical chest pain with abnormal EKG. The patient should have an outpatient M PI as soon as possible. I will make arrangements for that. She can go home otherwise. It may be re asonable to put her on a low-dose beta-khalif and aspirin until I see her. ALBA/JILL Voice ID: [id number] Report ID: [id number]
== END 2021-10-09 18:35 | disposition home or self-care (01) ==
LOC: ER 11:19 → ERHOLD 18:55
PROVIDERS: ADMIT Internal Medicine; ATTEND Internal Medicine
DX: R07.89 Other chest pain (principal); R94.31 Abnormal electrocardiogram [ECG] [EKG]; F17.210 Nicotine dependence, cigarettes, uncomplicated; Z28.310 Unvaccinated for COVID-19; Z20.822 Contact with and (suspected) exposure to COVID-19; Z82.49 Family history of ischemic heart disease and other diseases of the circulatory system
CPT/HCPCS: 93005 ×2; 93306; 85025 ×2; 80048 ×2; 36415; 83735; 85610; 80061; 80076; 84484 ×3; 83880; 71045; 94760 ×2; 99285; U0003; J1650; G0378 ×3; J2785

== ENCOUNTER 2022-05-02 16:48 | Emergency (ER) | payer BC, OTHER ==
--- OUTSIDE RECORDS SUMMARY | 2022-05-02 16:51 | XMS REPORT | Continuity of Care Document ---
:1965 Author Organization [facility] t Address [address] [place] [address] Care Team Providers Name Role Phone PCP, PATIENT DOES NOT HAVE A Primary Care Physician UnavailDAVID Desai Attending Clinician Unavailable Only, Ang Db Test Attending Clinician Unavailable David López MD Attending Clinician Priscilla Vazquez Attending Clinician Only, Adc Test Attending Clinician Unavailable Morgan Brady MD Attending Clinician Lab, Adc Fam Pob I Attending Clinician Unavailable PRISCILLA VIEYRA Attending Clinician Unavailable Doctor Unassigned, [place] Attending Clinician Unavailable Lázaro Bhardwaj MD Attending Clinician Payers Payer Name Policy Type Policy Number Effective Date Expiration Date S [facility] [id number] 2019 00:00:00 Problems This patient has no known problems. Allergies, Adverse Reactions, Alerts Allergy Allergy Status Severity Reaction(s) Onset Inactive Treating Comm ents Source Name Type Date Date Clinician NO KNOWN Drug Active [facility] ALLERGIE Class ity of S [facility] Social History Social Habit Start Date Stop Date Quantity Comments Source Exposure to Not sure [facility] SARS-CoV-2 (event) Medica l Branch Sex Assigned At [address] 1965 [facility] 00:00:00 00:00:00 Medical Branch Smoking Status Start Date Stop Date Source Unknown if ever smoked [facility] Medications Ordered Filled Start Stop Current Ordering Indication Dosage Frequency Signature Comments Components Source Medication Medication Date Date Medication? Clinician (SIG) Name Name No known 2020-05 No Univers medications - ity of 16:29: [place] [address] [facility] [place] No known No Univers medications ity [facility] No known No Univers medications ity [facility] No known No Univers medications ity of [facility] No known No Univers medications ity of [facility] No known No Univers medications ity of [facility] No known No Univers medications ity of [facility] No known No Univers medications ity of [facility] No known No Univers medications ity of [facility] No known No Univers medications ity of [facility] No known No Univers medications ity of [facility] No known No Univers medications ity [facility] Procedures Procedure Date / Time Performed Performing Clinician [facility] e ASSIGNMENT OF BENEFITS 2020-01-11 19:53:17 Doctor Unassigned, No [facility] Encounters Start End Encounter Admission Attending Care Care Encounter Source Date/Time Date/Time Type Type Clinicians Facility Department ID 2021-05-21 2021-05-21 Outpatient R RENE [facility] [id number] Univers 16:30:00 16:30:27 DAVID ity [facility] 2021-05-21 2021-05-21 Laboratory Only, Ang Db Test [facility] 1.2.8 40.114 [id number] Univers 16:30:00 16:30:27 Only Rene David [facility] [id number] ity of [place] [id number] Frank as SEA?BLEA [phone] [facility] [address] [place] MEDICAL OFFICE BUILDING 2020-09-20 2020-09-20 Telephone Vickey [facility] [id number] Univers 00:00:00 00:00:00 Priscilla Quigley [id number] i [id number] [place] [phone] [place] [address] Branch Building 2020-09-19 2020-09-19 Laboratory Only, Adc Test [facility] 1.2.840. 114 [id number] Univers 13:54:25 14:09:25 Only Morgan Brady [id number] [id number] [place] [phone] [address] 2020-09-19 2020-09-19 Outpatient R [facility] [id number] Univers 14:00:00 14:00:00 ity of [facility] 2020-09-12 2020-09-12 Telephone Vickey [facility] [id number] Univers 00:00:00 00:00:00 Priscilla [facility] [id number] it y of [place] [id number] Frank as Professio [phone] [address] Office Building One 2020-09-11 2020-09-11 Telephone Vickey [facility] [id number] Univers 00:00:00 00:00:00 Priscilla [facility] [id number] it y of [place] [id number] Frank as Professio [phone] [address] Office [facility] One 2020-09-09 2020-09-09 Laboratory Lab, Adc Fam Pob I [facility] 1.2. [id number] [id number] Univers 15:32:06 15:52:06 Only Priscilla Vieyra [id number] ity of [place] [id number] Frank as Professio [phone] [address] One 2020-09-09 2020-09-09 Outpatient [facility] [id number] Univers 15:00:00 15:00:00 PRISCILLA ity of [facility] 2020-09-09 2020-09-09 Letter Doctor NIXON [id number] Univers 00:00:00 00:00:00 (Out) Unassigned, KATIA [id number] ity of [place] [facility] [id number] Frank as [phone] [address] 2020-01-11 2020-01-11 Laboratory Only, Adc Test [facility] 1.2.840. 114 [id number] Univers 14:56:13 15:11:13 Only Lázaro Bhardwaj [id number] ity of [place] [id number] [facility] [phone] [facility] [address] Branch 2020-01-11 2020-01-11 Outpatient R [facility] [id number] Univers 14:45:00 14:45:00 ity of [facility] 2020-01-11 2020-01-11 Orders Doctor NIXON [id number] Univers 00:00:00 00:00:00 Only Unassigned, KATIA [id number] ity of [place] [facility] [id number] [facility] [phone] [facility] 009 Branch Results This patient has no known results.
[2022-05-02 17:57] LABS: Urine Blood 3+ (Negative); Urine Glucose Negative (Negative); Urine Protein 2+ (Negative); Urine Specific Gravity >=1.030 (1.005-1.030)
--- NOTE | 2022-05-02 20:11 | ER ---
Nurse's Notes [facility] Name: Monie Bundy Age: 57 yrs Sex: Female : 1965 Arrival Date: 05/02/2022 Time: 16:49 Bed 2 Private MD: Diagnosis: UTI/ Urinary tract infection, site not specified Presentation: 05/02 17:18 Chief complaint: Patient states: has a lot of pelvic pressure and I feel like i have to iw go pee but it wont come out , started today. Coronavirus screen: At this time, the client does not indicate any symptoms associated with coronavirus-19. Ebola Screen: Patient negative for fever greater than or equal to 101.5 degrees Fahrenheit, and additional compatible Ebola Virus Disease symptoms Patient denies exposure to infectious person. Patient denies travel to an Ebola-affected area in the 21 days before illness onset. No symptoms or risks identified at this time. Initial Sepsis Screen: Does the patient meet any 2 criteria? No. Patient's initial sepsis screen is negative. Does the patient have a suspected source of infection? No. Patient's initial sepsis screen is negative. Risk Assessment: Do you want to hurt yourself or someone else? Patient reports no desire to harm self or others. Onset of symptoms was May 02, 2022. 17:18 Method Of Arrival: Ambulatory iw 17:18 Acuity: JANNETTE 4 iw Historical: - Allergies: 17:19 No Known Allergies; iw - PMHx: 17:19 None; iw - Immunization history:: Adult Immunizations unknown. - Social history:: Smoking status: Patient denies any tobacco usage or history of. Screenin:25 Abuse screen: Denies threats or abuse. Denies injuries from another. Nutritional as6 screening: No deficits noted. Tuberculosis screening: No symptoms or risk factors identified. Fall Risk None identified. Assessment: 20:24 General: Appears in no apparent distress. Behavior is calm, cooperative. Pain: as6 Complains of pain in suprapubic area. Neuro: Level of Consciousness is awake, alert, obeys commands, Oriented to person, place, time, situation. Cardiovascular: Capillary refill < 3 seconds Patient's skin is warm and dry. Respiratory: Respiratory effort is even, unlabored. : Reports burning with urination, urgency, urinary frequency. Vital Signs: 17:18 BP 133 / 95; Pulse 79; Resp 16; Temp 98.2; Pulse Ox 100% on R/A; iw 20:24 BP 145 / 93; Pulse 72; Resp 18 S; Pulse Ox 99% on R/A; as6 ED Course: 16:49 Patient arrived in ED. am2 16:51 Viri Oviedo FNP-C is [facility]. snw 16:51 Obinna Levine MD is Attending Physician. snw 17:19 Triage completed. iw 17:19 Arm band placed on. iw 20:05 Kaushik Ambriz, RN is Primary Nurse. as6 20:25 No provider procedures requiring assistance completed. Patient did not have IV access as6 during this emergency room visit. 20:26 Bed in low position. Call light in reach. as6 Administered Medications: 20:18 Drug: Rocephin (cefTRIAXone) 1 grams Route: IM; Site: right ventrogluteal; as6 20:26 Follow up: Response: No adverse reaction as6 Medication: 20:26 VIS not applicable for this client. as6 Outcome: 20:10 Discharge ordered by . snw 20:25 Discharged to home ambulatory. as6 20:25 Condition: stable 20:25 Discharge instructions given to patient, Instructed on discharge instructions, follow up and referral plans. medication usage, Demonstrated understanding of instructions, follow-up care, medications, Prescriptions given X 3. 20:26 Patient left the ED. as6 Signatures: Viri Oviedo FNP-C FNP-Csnw Cyndie Cooley RN RN Beverly Shoemakeranda am Kaushik Ambriz, RN RN as6
--- NOTE | 2022-05-02 20:11 | EDPHYS ---
Physician Documentation [facility] Name: Monie Bundy Age: 57 yrs Sex: Female : 1965 Arrival Date: 05/02/2022 Time: 16:49 Bed 2 Private MD: ED Physician Obinna Levine HPI: 05/02 20:16 This 57 yrs old Female presents to ER via Ambulatory with complaints of Pelvic snw Pain, Urinary Retention. 20:16 The patient presents with urinary symptoms, dysuria, frequency, hesitancy, urinary snw retention. Onset: The symptoms/episode began/occurred suddenly, 2 day(s) ago, and became worse this morning, sitting in ED waiting pain has improved per report. Modifying factors: The symptoms are alleviated by nothing. Severity of symptoms: At their worst the symptoms were moderate, in the emergency department the symptoms have improved. The patient has experienced a previous episode. The patient has been recently seen by a physician: a dentist, with different complaint(s), was given a prescription for antibiotics. Historical: - Allergies: 17:19 No Known Allergies; iw - PMHx: 17:19 None; iw - Immunization history:: Adult Immunizations unknown. - Social history:: Smoking status: Patient denies any tobacco usage or history of. ROS: 20:15 Constitutional: Negative for fever, chills, and weight loss, Eyes: Negative for injury, snw pain, redness, and discharge, ENT: Negative for injury, pain, and discharge, Neck: Negative for injury, pain, and swelling, Cardiovascular: Negative for chest pain, palpitations, and edema, Respiratory: Negative for shortness of breath, cough, wheezing, and pleuritic chest pain, Abdomen/GI: Negative for abdominal pain, nausea, vomiting, diarrhea, and constipation, Back: Negative for injury and pain, MS/Extremity: Negative for injury and deformity, Skin: Negative for injury, rash, and discoloration, Neuro: Negative for headache, weakness, numbness, tingling, and seizure, Psych: Negative for depression, anxiety, suicide ideation, homicidal ideation, and hallucinations. 20:15 : Positive for urinary symptoms, small amounts, burning with urination, difficulty snw urinating, suprapubic tenderness. Exam: 20:14 Constitutional: This is a well developed, well nourished patient who is awake, alert, snw and in no acute distress. Head/Face: Normocephalic, atraumatic. Eyes: Pupils equal round and reactive to light, extra-ocular motions intact. Lids and lashes normal. Conjunctiva and sclera are non-icteric and not injected. Cornea within normal limits. Periorbital areas with no swelling, redness, or edema. Neck: Trachea midline, no thyromegaly or masses palpated, and no cervical lymphadenopathy. Supple, full range of motion without nuchal rigidity, or vertebral point tenderness. No Meningismus. Chest/axilla: Normal chest wall appearance and motion. Nontender with no deformity. No lesions are appreciated. Cardiovascular: Regular rate and rhythm with a normal S1 and S2. No gallops, murmurs, or rubs. Normal PMI, no JVD. No pulse deficits. Respiratory: Lungs have equal breath sounds bilaterally, clear to auscultation and percussion. No rales, rhonchi or wheezes noted. No increased work of breathing, no retractions or nasal flaring. Back: No spinal tenderness. No costovertebral tenderness. Full range of motion. Skin: Warm, dry with normal turgor. Normal color with no rashes, no lesions, and no evidence of cellulitis. MS/ Extremity: Pulses equal, no cyanosis. Neurovascular intact. Full, normal range of motion. Neuro: Awake and alert, GCS 15, oriented to person, place, time, and situation. Cranial nerves II-XII grossly intact. Motor strength 5/5 in all extremities. Sensory grossly intact. Cerebellar exam normal. Normal gait. Vital Signs: 17:18 BP 133 / 95; Pulse 79; Resp 16; Temp 98.2; Pulse Ox 100% on R/A; iw 20:24 BP 145 / 93; Pulse 72; Resp 18 S; Pulse Ox 99% on R/A; as6 MDM: 20:02 Patient medically screened. snw 20:17 Data reviewed: vital signs, nurses notes. Data interpreted: Pulse oximetry: on room air snw is 100 %. Interpretation: normal. Counseling: I had a detailed discussion with the patient and/or guardian regarding: the historical points, exam findings, and any diagnostic results supporting the discharge/admit diagnosis, lab results, the need for outpatient follow up, to return to the emergency department if symptoms worsen or persist or if there are any questions or concerns that arise at home. Response to treatment: the patient's symptoms have mildly improved after treatment. Special discussion: I have referred the patient to see his PCP for further evaluation of high blood pressure. Based on the history and exam findings, there is no indication for further emergent testing or inpatient evaluation. I discussed with the patient/guardian the need to see the primary care provider for further evaluation of the symptoms. 05/02 17:57 Order name: Urine Dipstick-Ancillary; Complete Time: 17:58 EDMS 05/02 19:45 Order name: Urine Culture snw 05/02 17:20 Order name: Urine Dipstick-Ancillary (obtain specimen); Complete Time: 17:58 iw Administered Medications: 20:18 Drug: Rocephin (cefTRIAXone) 1 grams Route: IM; Site: right ventrogluteal; as6 20:26 Follow up: Response: No adverse reaction as6 Disposition Summary: 05/02/22 20:10 Discharge Ordered Location: Home snw Condition: Stable snw Diagnosis - UTI/ Urinary tract infection, site not specified snw Followup: snw - With: Emergency Department - When: As needed - Reason: Worsening of condition Followup: snw - With: Private Physician - When: 2 - 3 days - Reason: Recheck today's complaints, Continuance of care, Re-evaluation by your physician Discharge Instructions: - Discharge Summary Sheet snw - Hypertension, Adult snw - Urinary Tract Infection, Adult snw - Rehydration, Adult snw - Form - Blood Pressure Record Sheet snw Forms: - Medication Reconciliation Form snw - Thank You Letter snw - Antibiotic Education snw - Prescription Opioid Use snw Prescriptions: - Pyridium 200 mg Oral Tablet - take 1 tablet by ORAL route every 8 hours for 3 days; 9 tablet; Refills: 0, snw Product Selection Permitted - Cipro 500 mg Oral Tablet - take 1 tablet by ORAL route every 12 hours for 7 days; 14 tablet; Refills: 0, snw Product Selection Permitted - Fluconazole 200 mg Oral Tablet - take 1 tablet by ORAL route once wkly; 2 tablet; Refills: 0, Product Selection snw Permitted Signatures: Dispatcher [employer] KULWANTGA Viri Oviedo, [facility] [employer]IOR[employer] THERAPY COORDINATOR-Csnw Cyndie Cooley RN RN Bob Hemphillby, RN RN as6
[2022-05-02] MEDS ORDERED: CEFTRIAXONE 1000 MG/VIAL ONE (20:15)
[2022-05-02] MEDS ORDERED: LIDOCAINE 1% MPF 2 ML AMPULE ONE (20:15)
[2022-05-02 23:45] VITALS: TEMP 98.2
[2022-05-02 23:46] VITALS: BP 145/93; O2SAT 99
== END 2022-05-02 20:26 | disposition home or self-care (01) ==
LOC: ER 16:48
DX: N39.0 Urinary tract infection, site not specified (principal)
CPT/HCPCS: 81003; 87077; 87086; 87088; 87186; 96372; 99283